=== PATIENT | female | born 1955 | race Caucasian/White ===

== ENCOUNTER → 2020-03-24 | Outpatient (CLI) | payer MEDICARE, OTHER | END | disposition home or self-care (01) | LOC: CFH 07:08 | PROVIDERS: ATTEND Nurse Practitioner Family | DX: R92.1 Mammographic calcification found on diagnostic imaging of breast (principal); N64.4 Mastodynia | CPT/HCPCS: 77066; G0279 ==

== ENCOUNTER 2020-04-03 11:46 | Observation (INO) | payer MEDICARE, OTHER ==
[~2020-04-03] VITALS: Ht 154.9 cm; Wt 77.9 kg
--- NOTE | 2020-04-03 12:08 | NUR ---
PT C/O INTERMITTENT LEFT CHEST AND ARM PAIN X1 MONTHL, WITH EXERTION. PAIN RELIEVED WITH REST. DENIES ANY HEART PROBLEMS. PT CONNECTED TO MONITORING. CALL LIGHT IN REACH.
[2020-04-03] MEDS ORDERED: ASPIRIN 81 MG TABLET CHEW PO ONE (13:00)
[2020-04-03] MEDS ORDERED: SODIUM CHLORIDE FLUSH 10ML SYR IVF ONE (13:00)
[2020-04-03] MEDS ORDERED: ASPIRIN 81 MG TABLET CHEW ONE (13:05)
--- NOTE | 2020-04-03 13:08 | NUR ---
PIV PLACED. BLOOD DRAWN AND COLLECTED BY LAB. MEDS ADMIN PER JAN. XRAY COMPLETE. PT RESTING COMFORTABLY ON GURNEY. SCOUTN.
[2020-04-03 13:26] LABS: BASOPHILS # (AUTO) 0.02 x10^3/uL (0-0.1); BASOPHILS % (AUTO) 0 % (0-1); EOSINOPHILS # (AUTO) 0.16 x10^3/uL (0-0.4); EOSINOPHILS % (AUTO) 2 % (1-7); LYMPHOCYTES # (AUTO) 1.68 x10^3/uL (1-3.4); LYMPHOCYTES % (AUTO) 23 % (22-44); MD NO; MEAN CORPUSCULAR HEMOGLOBIN 29.4 pg (27.0-34.8); MEAN CORPUSCULAR HGB CONC 33.8 g/dL (32.4-35.8); MEAN CORPUSCULAR VOLUME 87.1 fL (80-100); MEAN PLATELET VOLUME 9.3 fL (7.4-10.4); MONOCYTES # (AUTO) 0.44 x10^3/uL (0.2-0.8); MONOCYTES % (AUTO) 6 % (2-9); NEUTROPHILS # (AUTO) 5.05 x10^3/uL (1.8-6.8); NEUTROPHILS % (AUTO) 69 % (42-75); PLATELET COUNT 232 x10^3/uL (130-400); RED BLOOD COUNT 5.23 x10^6/uL (3.82-5.3); RED CELL DISTRIBUTION WIDTH 13.1 % (9.6-15.2)
[2020-04-03 13:37] LABS: ALANINE AMINOTRANSFERASE 29 U/L (12-78); ANION GAP 7 mmol/L (5-15); CALCIUM 9.4 mg/dL (8.5-10.1); CHLORIDE 107 mmol/L (98-107); CREATININE 0.88 mg/dL (0.55-1.02)
[2020-04-03 13:40] LABS: ALKALINE PHOSPHATASE 72 U/L (45-117); BILIRUBIN,TOTAL 0.6 mg/dL (0.2-1.0); TOTAL PROTEIN 8.1 g/dL (6.4-8.2); TROPONIN I < 0.015 ng/mL (0.000-0.045)
--- NOTE | 2020-04-03 13:57 | NUR ---
ALL RESULTS ARE BACK AT THIS TIME. CHART UP FOR RECHECK.
--- NOTE | 2020-04-03 14:42 | NUR ---
MD AT BEDSIDE TO UPDATE PT ON POC.
--- NOTE | 2020-04-03 14:43 | NUR ---
PT RESTING COMFORTABLY ON GURALEXANDRE. ANNELIESE. PT TO BE ADMIT.
[2020-04-03] MEDS ORDERED: METF500T17 PO (15:10)
[2020-04-03] MEDS ORDERED: EMPA10TA PO (15:10)
[2020-04-03] MEDS ORDERED: METFORMIN (15:10)
[2020-04-03] MEDS ORDERED: LISI40TA PO (15:10)
--- NOTE | 2020-04-03 16:26 | NUR ---
HOSPITALIST AT BEDSIDE.
[2020-04-03] MEDS ORDERED: SODIUM CHLORIDE FLUSH 10ML SYR IVF PRN (16:30)
[2020-04-03] MEDS ORDERED: ENOXAPARIN 40 MG/0.4 ML SQ SCH (17:00)
[2020-04-03] MEDS ORDERED: POLYETHYLENE GLYCOL 17 GM PACKET PO PRN (17:00)
[2020-04-03] MEDS ORDERED: DOCUSATE 100 MG CAPSULE PO PRN (17:00)
[2020-04-03] MEDS ORDERED: ONDANSETRON ODT 4 MG PO PRN (17:00)
[2020-04-03] MEDS ORDERED: ACETAMINOPHEN 325 MG TABLET PO PRN (17:00)
[2020-04-03] MEDS ORDERED: ONDANSETRON 2MG/ML, 2ML IVPush PRN (17:00)
--- NOTE | 2020-04-03 17:26 | NUR ---
DIET TRAY DELIVERED.
--- NOTE | 2020-04-03 18:12 | NUR ---
REPORT GIVEN TO ROSHNI ROD.
[2020-04-03 18:50] VITALS: BP 135/82
[2020-04-03 19:40] VITALS: BP 117/71
[2020-04-03] MEDS: metFORMIN 500 MG TABLET PO SCH (20:22)
[2020-04-04 01:15] VITALS: BP 131/73
[2020-04-04 05:51] LABS: BASOPHILS # (AUTO) 0.07 x10^3/uL (0-0.1); BASOPHILS % (AUTO) 1 % (0-1); EOSINOPHILS # (AUTO) 0.28 x10^3/uL (0-0.4); EOSINOPHILS % (AUTO) 4 % (1-7); LYMPHOCYTES # (AUTO) 2.64 x10^3/uL (1-3.4); LYMPHOCYTES % (AUTO) 35 % (22-44); MD NO; MEAN CORPUSCULAR HEMOGLOBIN 29.2 pg (27.0-34.8); MEAN CORPUSCULAR HGB CONC 33.5 g/dL (32.4-35.8); MEAN CORPUSCULAR VOLUME 86.9 fL (80-100); MEAN PLATELET VOLUME 9.3 fL (7.4-10.4); MONOCYTES # (AUTO) 0.52 x10^3/uL (0.2-0.8); MONOCYTES % (AUTO) 7 % (2-9); NEUTROPHILS % (AUTO) 54 % (42-75); PLATELET COUNT 236 x10^3/uL (130-400); RED BLOOD COUNT 4.91 x10^6/uL (3.82-5.3); RED CELL DISTRIBUTION WIDTH 12.9 % (9.6-15.2)
[2020-04-04 05:59] LABS: ANION GAP 6 mmol/L (5-15); CHLORIDE 107 mmol/L (98-107)
[2020-04-04] MEDS ORDERED: ASPIRIN 81 MG TABLET EC PO SCH (06:00)
[2020-04-04 06:06] LABS: CHOL/HDL RATIO 5.9; CHOLESTEROL, TOTAL 220 mg/dL (140-239); CREATININE 0.82 mg/dL (0.55-1.02); HDL CHOL % 17 % (28-40); HDL CHOLESTEROL (DIRECT) 37 mg/dL (40-60); LDL CHOLESTEROL,CALCULATED 120 mg/dL (54-169); LDL/HDL RATIO 3.2 (0.5-3.0); TRIGLYCERIDES 317 mg/dL (50-200); TROPONIN I < 0.015 ng/mL (0.000-0.045); VLDL CHOLESTEROL 63 mg/dL (0-25)
[2020-04-04] MEDS: metFORMIN 500 MG TABLET PO SCH (07:25)
[2020-04-04 08:00] VITALS: BP 111/69
[2020-04-04] MEDS ORDERED: LISINOPRIL 40 MG TABLET PO SCH (09:00)
[2020-04-04] MEDS ORDERED: TEMPLATE NON-FORMULARY MED. (Empagliflozin (Jardiance) 10 MG) PO SCH (09:00)
[2020-04-04 13:55] VITALS: BP 150/79
[2020-04-04] MEDS ORDERED: METO25TA91 PO (16:29)
[2020-04-04] MEDS ORDERED: POTASSIUM CHLORIDE 20 MEQ TAB.ER.PRT PO ONE (16:30)
[2020-04-04] MEDS ORDERED: ENOXAPARIN 40 MG/0.4 ML SQ SCH (20:00)
== END 2020-04-04 17:29 | disposition home or self-care (01) ==
LOC: ED 15:28 → INTOOBSV 16:50 → EDIP 16:50 → 5SO 18:31
PROVIDERS: ADMIT Family Medicine; ATTEND Family Medicine
DX: R07.89 Other chest pain (principal); I20.8 Other forms of angina pectoris; E11.9 Type 2 diabetes mellitus without complications; I10 Essential (primary) hypertension; E78.5 Hyperlipidemia, unspecified; Z85.828 Personal history of other malignant neoplasm of skin; Z79.84 Long term (current) use of oral hypoglycemic drugs; Z79.899 Other long term (current) drug therapy
CPT/HCPCS: 36415; 71045; 80048; 80053; 80061; 82962; 83036; 83880; 84484; 85025; 93005; 93017; 96372; 99285; G0378; J1650

== ENCOUNTER → 2021-06-30 | Outpatient (CLI) | payer MEDICARE, OTHER ==
[~2021-06-30] MED LIST: EMPA10TA PO; LISI40TA9 PO; METF500T17 PO; METFORMIN; METO25TA91 PO
[2021-06-30 09:45] LABS: FREE T4 (FREE THYROXINE) 1.12 ng/dL (0.76-1.46)
== END | disposition home or self-care (01) ==
LOC: LAB 09:03
PROVIDERS: ATTEND Physician Assistant
DX: E03.8 Other specified hypothyroidism (principal)
CPT/HCPCS: 36415; 84439; 84443; 84481